=== PATIENT | female | born 1955 | race Caucasian/White ===

== ENCOUNTER → 2024-08-31 | Outpatient (CLI) | payer SELFPAY, OTHER ==
--- NOTE | 2024-08-31 13:15 | CT_ITS ---
EXAM: CT LEFT LOWER EXTREMITY WITHOUT INTRAVENOUS CONTRAST CLINICAL INDICATION: templating for left TKA. pre-op peg TECHNIQUE: Helically acquired images were obtained of the left lower extremity without intravenous contrast. 2-D reformats were performed by the technologist. CTDIvol = ( 19.10 ) mGy, DLP = ( 1221.36 ) mGycm This CT exam was performed using one or more of the following dose reduction techniques: automated exposure control, adjustment of the mA and/or kV according to patient size, and/or use of iterative reconstruction technique. COMPARISON: December 30, 2023 FINDINGS: BONES/JOINTS: Prominent plantar calcaneal enthesophyte. Moderate tricompartmental osteoarthrosis. Greater trochanteric enthesopathy. Preservation of the joint space. No acute or healing fracture or malalignment. No unusual lytic or sclerotic lesions of bone. No osteonecrosis. No other unusual lytic or sclerotic lesions of bone. SOFT TISSUES: Left inguinal hernia containing a loop of descending/sigmoid colon. This appears to be incarcerated. No definite strangulation at this time on limited assessment. No bowel obstruction on limited assessment. No soft tissue swelling or gas. No radiopaque foreign body. No soft tissue mass. CT/Extremity Lower without Contra IMPRESSION: Left inguinal hernia containing a loop of descending/sigmoid colon. This appears to be incarcerated. No definite strangulation or bowel obstruction at this time on limited assessment. Electronically Signed: Arnulfo Hay MD at 21:55 EST ,
[2024-08-31 13:27] LABS: Absolute Lymphocyte Count 1.44 X10^3/uL (0.83-4.51); Absolute Neutrophil Count 3.1 X10^3/uL (2.0-7.7); Basophil# 0.02 X10^3/uL; Basophil% 0.4 % (0-1); Eosinophil# 0.08 X10^3/uL; Eosinophils% 1.6 % (0-5); Hematocrit 42.6 % (37-47); Hemoglobin 13.4 g/dL (12.0-15.0); Lymphocyte # 1.44 X10^3/ul (0.83-4.51); Lymphocyte % 28.4 % (19-41); Mean Corp Hgb Conc 31.5 g/dL (32-36); Mean Corpuscular Hgb 28.6 pg (27.0-32.0); Mean Platelet Vol. 10.9 fl (6.2-12.0); Monocyte# 0.44 X10^3/uL; Monocyte% 8.7 % (0-10); NRBC Flagged by Analyzer 0 % (0-5); Neutrophil # 3.08 X10^3/uL (2.7-7.7); Neutrophil % 60.7 % (47-70); Platelet Count 250 K/mm3 (150-450); RBC Distribution Width CV 13.2 % (11.6-14.6); RBC Distribution Width SD 44.1 fl (35.1-43.9); Red Blood Count 4.68 M/mm3 (4.2-5.4); White Blood Count 5.1 K/mm3 (4.4-11.0)
[2024-08-31 13:40] LABS: Anion Gap 4 (5-15); BUN 8 mg/dL (7-18); BUN/Creat Ratio 9.5 RATIO (10-20); Calcium,Total 9.7 mg/dL (8.5-10.1); Chloride 104 mmol/L (98-107); Creatinine, Serum 0.85 mg/dL (0.55-1.02); EST Glomerular Filtration Rate 71 mL/min (>60); Est Glom Filt Rate - Afr Amer 86 mL/min (>60); Glucose 126 mg/dL (74-106); Potassium 3.9 mmol/L (3.5-5.1); Sodium Level 138 mmol/L (136-145)
[2024-08-31 13:50] LABS: Hemoglobin A1c 6.3 % (3.8-5.6)
== END | disposition home or self-care (01) ==
LOC: CT 13:02
PROVIDERS: PCP Family Medicine; Referring Provider Orthopaedic Surgery; Visit Provider Orthopaedic Surgery
DX: Z01.818 Encounter for other preprocedural examination (principal); M17.12 Unilateral primary osteoarthritis, left knee
CPT/HCPCS: 36415; 73700; 80048; 83036; 85025; 86850; 86900; 86901

== ENCOUNTER 2024-09-13 14:28 | Inpatient (IN) | payer SELFPAY, OTHER ==
--- NOTE | 2024-07-06 08:14 | EKG12_ITS ---
Test Reason : PREOP Blood Pressure : / mmHG Vent. Rate : 063 BPM Atrial Rate : 063 BPM P-R Int : 164 ms QRS Dur : 082 ms QT Int : 430 ms P-R-T Axes : 047 -11 045 degrees QTc Int : 440 ms Normal sinus rhythm Normal ECG Confirmed by CAROL GUILLEN, NELA ([id number]), technical editor JONATHAN CAMPBELL ([id number]) on 07/06/2024 2:10:57 PM Referred By: Mike Moore Confirmed By:NELA MEDINA MD
[2024-09-13] VITALS (15 sets, daily range): BP systolic 111–151; BP diastolic 57–75; PULSE 68–85; RESP 16–18; TEMP 36.2–36.6; O2SAT 88–100; BMI 38.2
[2024-09-13] MEDS: Scopolamine 1mg/72hr Patch 1 PATCH TD (09:18)
[2024-09-13] MEDS: Acetaminophen 500 MG Tablet 1000 MG PO ×2 (09:19→21:08)
[2024-09-13] MEDS: 0.9% Normal Saline (1000mL) 1,000 ML 15 ML IV (09:19)
[2024-09-13] MEDS: Celecoxib 200 MG Capsule 400 MG PO (09:19)
[2024-09-13] MEDS: Gabapentin 600 MG Tablet PO (09:20)
[2024-09-13] MEDS: Magnesium 1 GM over 15 mins IV (09:20)
--- NOTE | 2024-09-13 10:21 | PCM.PRE.AN2 ---
ASA Classification* ASA Classification ASA Classification: 2 Assessment & Plan Anesthesia* Anesthesia Assessment Anesthesia Assessment: Discussed sedation and/or anesthesia options, risks, benefits, and alternatives with patient/parents/legal guardian/POA. Questions invited. The patient/parents/legal guardian/POA seems to understand and agrees to proceed with anesthesia plan. Reviewed the physical assessment, medical history, allergy history and patient home medications list prior to surgery/procedure/anesthetic and documented any changes. Performed airway and anesthesia risk assessments. Anesthesia Type Anesthesia Type: MAC, Spinal and Block (Patient is consented for adductor canal block.) History Source History Obtained from:: Patient and Chart Anesthesia Focused Assessment* Temperature: 97.6 F Pulse Rate: 72 Blood Pressure: 139/75 Respiratory Rate: 16 Pulse Ox: 97 Oxygen Delivery Method: Room Air Airway Assessment Mouth opens: >3 cm Mallampati Score: II Teeth Condition: Dentures (Patient has full upper and lower dentures.) Neck Range of motion (ROM): Limited ROM (Slight decrease in extension) Focused Labs Anesthesia Preop lab: CBC WBC 5.1 K/mm3 (4.4-11.0) 08/31/24 13:05 RBC 4.68 M/mm3 (4.2-5.4) 08/31/24 13:05 Hgb 13.4 g/dL (12.0-15.0) 08/31/24 13:05 Hct 42.6 % (37-47) 08/31/24 13:05 Plt Count 250 K/mm3 (150-450) 08/31/24 13:05 CHEMISTRY Potassium 3.9 mmol/L (3.5-5.1) 08/31/24 13:05 Sodium 138 mmol/L (136-145) 08/31/24 13:05 BUN 8 mg/dL (7-18) 08/31/24 13:05 Creatinine 0.85 mg/dL (0.55-1.02) 08/31/24 13:05 Glucose 126 mg/dL (74-106) H 08/31/24 13:05 COAG Pre-Assessment Diagnosis/Proposed Procedure Planned Operative Procedure(s): LEFT KNEE TOTAL ARTHROPLASTY ROBOTIC ASSISTED Anesthesia History Anesthesia History - rf test engineer: Anesthesia History - rf test engineer Hx Hospitalization No 08/29/24 09:18 Any Problems With Anesthesia No 08/29/24 09:18 Cholinesterase deficiency No 08/29/24 09:18 You/Your Family Experience No 08/29/24 09:18 fever (hyperthermia) with Relationship Recent Exposure to Contagious No 09/13/24 08:56 Disease Does patient have nerve No 08/29/24 09:18 stimulator Patient instructed to have device shut off --Does patient have Pacemaker No 09/13/24 08:56 or ICD? When Was Last Pacemaker Check QUESTION #4 FULL TEXT: You/Your Family Experience fever (hyperthermia) with Anesthesia Last Oral Intake Last Oral intake: Last Oral Intake NPO since 07:15 09/13/24 08:56 Meds taken in AM with sips of water? Meds patient instructed to take am of surgery Any additional information?: Yes NPO since: 07:15 (Patient took her preop Ensure at 7:15 AM) PONV PONV - rf test engineer: PONV - rf test engineer Female Yes 08/29/24 09:18 HX of Motion Sickness No 08/29/24 09:18 HX of N/V After Surgery No 08/29/24 09:18 Non-Smoker Yes 08/29/24 09:18 Duration of Surgery greater Yes 08/29/24 09:18 than 60 minutes Number of Risk Factors 3 08/29/24 09:18 PONV Score Moderate Risk 08/29/24 09:18 Height & Weight Height & Weight: Anesthesia: Height & Weight Height 5 ft 2 in 09/13/24 08:56 Weight: 95 kg 09/13/24 08:56 Body Mass Index (BMI) 38.2 09/13/24 08:56 Respiratory Assessment Respiratory Assessment - rf test engineer: Respiratory Tract Infection Hx - rf test engineer Hx Respiratory Tract Infection No 08/29/24 09:18 STOP Sleep Apnea STOP Sleep Apnea - rf test engineer: STOP Sleep Apnea - rf test engineer Hx Hypertension No 08/29/24 09:18 Hx Sleep Apnea No 08/29/24 09:18 CPAP BIPAP Do you snore loudly (louder No 08/29/24 09:18 than talking or can be heard Do you often feel tired/ No 08/29/24 09:18 fatigued/ sleepy during daytime? Has anyone observed you stop No 08/29/24 09:18 breathing during sleep? STOP Results Negative 08/29/24 09:18 QUESTION #5 FULL TEXT : Do you snore loudly (louder than talking or can be heard through closed doors)? 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 Specify any problems Hx of Preganancy in last 3 No 08/29/24 09:18 Months Nurse Filling Out Transfusion VCHRISTIN 08/29/24 09:18 & Questions: Date: 08/29/24 08/29/24 09:18 Time: 09:18 08/29/24 09:18 Patient unable to answer at this time (ie. confused, unrespo /Reproduction History /Reproductive History - rf test engineer: /Reproductive Hx- rf test engineer Hx Now No 08/29/24 09:18 Gestational Age (in weeks): EDC: Hx Hx Para Hx Section SAB No 08/29/24 09:18 Active Medications Active Medications: Current Medications Generic Name Dose Route Start Last Admin Trade Name Freq PRN Reason Stop Dose Admin Acetaminophen 1,000 mg 09/13/24 10:45 09/13/24 09:19 Acetaminophen 500 Mg Tablet PO 09/13/24 10:46 1,000 mg X1 ONE Administration Celecoxib 400 mg 09/13/24 10:45 09/13/24 09:19 Celecoxib 200 Mg Capsule PO 09/13/24 10:46 400 mg X1 ONE Administration Dexamethasone Sodium Phosphate 10 mg 09/13/24 10:45 Dexamethasone 10 Mg/Ml Vial IV 09/13/24 10:46 X1 ONE Gabapentin 600 mg 09/13/24 10:45 09/13/24 09:20 Gabapentin 600 Mg Tablet PO 09/13/24 10:46 600 mg X1 ONE Administration Tranexamic Acid 1,000 mg/ 110 mls @ 660 mls/hr 09/13/24 10:45 Sodium Chloride IV 09/13/24 10:54 X1 ONE Tranexamic Acid 1,000 mg/ 110 mls @ 660 mls/hr 09/13/24 10:45 Sodium Chloride IV 09/13/24 10:54 X1 ONE Lactated Ringer's 1,000 mls @ 125 mls/hr 09/13/24 10:45 IV 09/13/24 18:44 .Q8H GIANA Magnesium Sulfate 1 gm/ 102 mls @ 408 mls/hr 09/13/24 10:45 09/13/24 09:20 Dextrose IV 09/13/24 10:59 408 mls/hr X1 ONE Administration Cefazolin Sodium 2 gm/ N/A 20 mls @ 400 mls/hr 09/13/24 10:45 IV 09/13/24 10:47 PREOP ONE Sodium Chloride 1,000 mls @ 15 mls/hr 09/13/24 08:40 09/13/24 09:19 IV 09/18/24 21:59 15 mls/hr .Q48H GIANA Administration Protocol Insulin Human Lispro 1 - 6 unit 09/13/24 10:45 Insulin Lispro 100 Unit/Ml Insuln.Pen SC 09/13/24 18:00 Q4H PRN PRN BG>/= 180, SEE PROTOCOL Protocol Scopolamine HBr 1 patch 09/13/24 10:45 09/13/24 09:18 Scopolamine 1mg/72hr Patch TD 09/13/24 10:46 1 patch X1 ONE Administration Sodium Chloride 5 - 15 ml 09/13/24 10:45 0.9% Nacl Peripheral Flush Adult/Peds IV UD PRN SALINE FLUSH PFSH Medical History Wears glasses Anxiety Wears dentures Post-menopausal Diabetes History of steroid therapy Incontinence of urine Arthritis DVT (deep venous thrombosis) Back pain Non-smoker History of pain when walking Home Medications ?Medication ?Instructions ?Recorded ?Last Taken ?Type BOWEL TONER 2 cap PO BID 07/04/24 Unknown History FULFURFLUME 2 cap PO BID 07/04/24 Unknown History MEXI VISION 2 cap PO BID 07/04/24 Unknown History MOBILITY JOINT SUPPORT 2 cap PO BID 07/04/24 Unknown History fish, borage, flaxseed oils-omega 2 cap PO BID 07/04/24 Unknown History 3,6,9 comb no.1 1,200 mg capsule ([place] 3-6-9) ibuprofen 600 mg tablet (IBU) 600 mg PO Q8H PRN pain 07/04/24 Unknown History Allergy/AdvReac Type Severity Reaction Status Date / Time Penicillins (PCN) Allergy Intermediate Swelling Verified 09/13/24 08:55 Family History Mother Heart disease Surgical History Hx of breast biopsy Hx of bladder repair surgery Hx laparoscopic cholecystectomy H/O total knee replacement Social History household members: spouse Smoking Status: Never smoker alcohol intake: never Review of Systems (Anesthesia) ROS Narrative System reviewed and no additional complaints, except as documented.
--- NOTE | 2024-09-13 10:45 | KNEE_PTH ---
PATIENT: JODI MUNOZ LOC: MS3 U#:[id number] AGE/SX: 69/F [place] [facility] [place]: Dr. Mike Moore DO : 1955 BED: 1 DIS: 09/14/2024 SPEC #: [id number] RECD: 09/15/24 07:34 STATUS: KURTIS REJennifer #: [id number] FEMI: 09/13/24 10:[address]: Mike Moore DEPT: SURGICAL PATHOLOGY RECD BY: Cammie Márquez ENTERED: 09/15/24 07:34 SP TYPE: TOTAL KNEE OTHR DR: MD Dr. Josefa Deleon MD Tissues: Knee, NOS Procedures: Decalcification bone/plaque Surgery Specimen Level IV HEADER OPERATION: Left total knee replacement robotic arm assist PRE-OP DIAGNOSIS: Chronic pain of left knee TISSUE SUBMITTED: Bone and soft tissue left knee MICROSCOPIC DIAGNOSIS Bone and soft tissue, left knee, total knee replacement/resection: Pieces of bone with degenerative osteoarthritic changes. FABY: 09/21/2024 MICROSCOPIC DESCRIPTION Slides are reviewed. GROSS DESCRIPTION Received is one container designated bone and soft tissue left knee. The specimen consists of multiple fragments of lawson-yellow bone measuring in aggregate 9.0 x 9.0 x 2.5 cm. No soft tissue is identified. A number of bony fragments contain articular surfaces consistent with tibial plateau and femoral condyle and displaying prominent osteophyte formation, eburnation and bone erosion. Window Shade Ring Sewer sections are submitted in two cassettes after decalcification. 09/15/2024 TC:5 CPT: 04993, 83318
--- NOTE | 2024-09-13 11:54 | PCM.HP.BLA ---
History and Physical Date of Admission: 09/13/24 [facility] [address] [place] [address] OFFICE VISIT Date of Service: 08/31/24 MR#: [id number] Acct: [id number] Name: JODI MUNOZ Rep #: [id number] : 1955 Provider: Dr. Mike Moore DO Age/Sex: 69/F Location: [facility] [place] Status: Signed Intake Vital Signs 07/22/2410:22 08/31/2410:27 Height 5 ft 2 in 5 ft 2 in Weight: 226 lb 4 oz 209 lb 4 oz BMI 41.3 38.2 Intake Visit Reasons: left knee Chief Complaint: left knee Allergies Penicillins (PCN) Allergy (Intermediate, Verified 08/29/24 09:14) Swelling Medications ?Medication ?Instructions ?Recorded ?Confirmed ?Type BOWEL TONER 2 cap PO BID 07/04/24 08/31/24 History FULFURFLUME 2 cap PO BID 07/04/24 08/31/24 History MEXI VISION 2 cap PO BID 07/04/24 08/31/24 History MOBILITY JOINT SUPPORT 2 cap PO BID 07/04/24 08/31/24 History fish, borage, flaxseed oils-omega 2 cap PO BID 07/04/24 08/31/24 History 3,6,9 comb no.1 1,200 mg capsule ([place] 3-6-9) ibuprofen 600 mg tablet (IBU) 600 mg PO Q8H PRN pain 07/04/24 08/31/24 History Have you fallen in the past year?: No PFSH Medical History Wears glasses Anxiety Wears dentures Post-menopausal Diabetes History of steroid therapy Incontinence of urine Arthritis DVT (deep venous thrombosis) Back pain Non-smoker History of pain when walking Surgical History Hx of breast biopsy Hx of bladder repair surgery Hx laparoscopic cholecystectomy H/O total knee replacement Family History Mother Heart disease Social History household members: spouse Smoking Status: Never smoker alcohol intake: never HPI left knee Details: This documentation accurately reflects the service provided and the decisions made by me, Dr. Mike Moore, DO 08/31/24 0801. Part of today?s visit was documented by Peggy KRAFT, acting as scribe. JODI MUNOZ is a 69 year old F here today for left knee Iovera treatment. Ortho Exam General General: Yes no acute distress Neurologic: Yes alert and Yes oriented x3 Psychologic: Yes reasonable and appropriate Left Knee Skin/Wound: No swelling Knee ROM: Yes ROM-Extension -20 to 0 and No ROM-Flexion 0-140 (110) Examination: Yes med jt line tenderness, No Lat jt line tenderness and No TTP Pes Anserine Stability: NML: Anterior Drawer, NML: Posterior Drawer, NML: Valgus 30 (3mm medial gapping) and NML: Varus 30 (2mm lateral gapping) Patella Grind: Yes Head: Normocephalic Atraumatic Chest: symmetrical rise, non-labored breathing, no audible wheeze Abdomen: no guarding, non-rigid Office Procedures Iovera Procedure Details:: Preoperative diagnosis :chronic knee pain Postoperative diagnosis: Same Procedure: Cryotherapy with Iovera device to anterior femoral cutaneous nerve and 2 branches of the infrapatellar saphenous nerve. Three nerves in total. Description of procedure: Patient was brought back to the procedure room the operative extremity was identified by both patient and physician. Entire extremity was cleaned with alcohol. The superior inferior and medial lateral borders of the patella were marked followed by the center of the patella. We then measured 12 cm proximal to this and with the knee in flexion marked the medial and lateral edges of the patella continuing proximally to give us our proximal treatment line.This was our treatment line for the anterior femoral cutaneous nerve. A second treatment line was made 5 cm medial to the inferior pole of the patella and 5 cm distally. The treatment lines were then prepped with Betadine and 1 last time with alcohol. Lidocaine 1% with epi was injected subcutaneously along the treatment lines. Using the Iovera device on the marked treatment lines device was activated allowing it to freeze and defrost with 1 minute cycles. Once all 3 nerve branches were treated across the 2 treatment lines patient was cleaned and a light dressing with 4 x 4 and Damion wrap was applied. Patient tolerated the procedure without complication. Supplemental Info 12/30/2023 x-ray left knee: Advanced medial compartment narrowing and arthrosis on AP view better on notch view milder degree of arthrosis in the remainder compartments Coding Level of Care Code Attention Physical Chemist Diagnoses Chronic pain of left knee M25.562; G89.29 Assessment and Plan Assessment and Plan (1) Chronic pain of left knee: Status: Chronic Orders: Orders Iovera Today M17.12 - Unilateral primary osteoarthritis, left knee Plan Iovera procedure performed today left knee Clinical Quality Measures Falls Risk Screening/Assistive Devices Have you fallen in the past year?: No 08/31/24 1216 <Electronically signed by Mike Moore DO> Date Mike Moore DO Cosigner Signature: Date (if applicable) CC: ~ I have examined the patient and the H&P has been reviewed. There are no clinical changes since date of exam.
[2024-09-13] MEDS: Cefazolin 2 GM in Syringe IV ×2 (12:01→17:29)
[2024-09-13] MEDS: dexAMETHasone 10 MG/ML Vial IV (12:10)
[2024-09-13] MEDS: TXA 1000mg in NS100 100ml (IVPB at Incision) 660 MG IV (12:10)
[2024-09-13] MEDS: TXA 1000mg in NS100 100ml (IVPB at Closure) 660 MG IV (12:44)
[2024-09-13] MEDS: Bupivacaine 0.5% PF 10 ML VIAL (13:36)
[2024-09-13] MEDS: dexAMETHasone 4 MG/ML Vial (13:37)
[2024-09-13] MEDS: Epinephrine (1 mg/ml) 1 MG/ML VIAL (13:37)
[2024-09-13] MEDS: 0.9% Normal Saline (Pres. free 10 ML Vial (13:38)
--- NOTE | 2024-09-13 14:22 | PCM.POST.ANE ---
Anesthesia: Postop Eval I Current Vital Signs Temperature: 97.2 F Pulse Rate: 80 Blood Pressure: 122/65 Respiratory Rate: 18 Pulse Ox: 100 Oxygen Delivery Method: Nasal Cannula Oxygen Flow Rate (L/min): 4 Assessment Airway patent: Yes Spontaneous unlabored respirations: Yes Mental status: Awake nausea: No Vomiting: No Anesthesia Complication: No Fluid Hydration Crystalloid volume administer (ml): 1,900 Total IV fluid infused: 1,900 Progress Note Anesthesia document: Postop Eval 1 completed: Yes
--- NOTE | 2024-09-13 14:30 | OP.PCM_ITS ---
Operative Report (Standard) Operative Information Date of Procedure: 09/13/24 Pre-Operative Diagnosis: Left knee DJD Post-Operative Diagnosis: Same Surgery/Procedure Performed: Left total knee arthroplasty voltage regulator assembler: Yes Billet Grinder: Desiree Pradhan Tasks completed by social worker assistant: Opening & closing Additional paralegal assistant?: No Type of Anesthesia: Spinal RN Documented Start/Stop Times: Operation Date: 09/13/24 10:45 Case Time Into Pre-Op 09/13/24 08:35 Out of Pre-Op 09/13/24 12:00 Anesthesia Start 09/13/24 12:01 Into Room 09/13/24 12:01 Procedure Start 09/13/24 12:30 Procedure End 09/13/24 14:09 Anesthesia End 09/13/24 14:17 Out of Room 09/13/24 14:17 Into Recovery 09/13/24 14:20 Procedure Start Time: 12:30 Procedure Stop Time: 14:09 Select all DRAINS/GRAFTS/IMPLANTS that apply: Prosthetic device Prosthetic device details: Alexi triathlon Estimated Blood Loss: 100 Specimen collected: Yes Description of specimen(s) removed: Bone Description of surgery: Preoperative diagnosis: Left knee DJD Postoperative diagnosis: Same Procedure: Left total knee arthroplasty CT guided Robotic Assisted Implant: [place] triathlon press fit, femoral component size1, tibial baseplate size 2, asymmetric patella size 29, polyethylene X3 size 9 CS Anesthesia: Spinal with adductor canal block Tourniquet time: 12 minutes at 300 mmHg Complications: None Condition: Stable to PACU Estimated blood loss: 100 cc Analyst Oswaldo Barger. My physician paralegal assistant was a vital part of this case. He was important in appropriate retraction during the case, and protection of soft tissues during procedure. His intimate knowledge of the case and my steps aided in safe and expedient completion of the procedure as well as appropriate position of the extremity during the case. He was also vital in assisting with closure under my direct supervision. Indication for procedure: This is a 69-year-old female with long standing d egenerative joint disease of the knee who has failed conservative treatment and wished to proceed with elective total knee arthroplasty. Risk benefits and alternatives were reviewed including; risk of bleeding, infection, nerve artery and tissue damage, continued pain, postoperative stiffness, venous thromboembolism, need for postoperative rehabilitation, mechanical feel to the knee, and expected postoperative course. The pre- operative CT and templating was performed with component sizing. Procedure: The patient was met in the preoperative holding area. The operative extremity was identified by both patient and physician and was marked. Patient was met by anesthesia. An adductor canal block was placed by anesthesia postoperatively the patient was brought back to the operating room on a wheeled cart and transferred to the operating table in the supine position. Anesthesia was started. A well-padded tourniquet was placed on the operative extremity. The patient was prepped and draped in the usual sterile fashion. A timeout was called to ensure the proper patient procedure and extremity were being contemplated. An esmarch was used to exsanguinate the extremity. The tourniq uet was inflated. A 10 blade scalpel was used to make a midline incision down through the skin and subcutaneous tissue. Skin retractors placed. Bovie and Aquamantis were used to perform meticulous hemostasis. full-thickness flaps were elevated medial and lateral along the joint capsule. A deep blade scalpel was used to perform a medial parapatellar arthrotomy. The knee was brought to full extension. A bovie was used to release the soft tissues off the most proximal aspect of the medial tibial plateau, a three-quarter inch curved osteotome was also used in this process. The infrapatellar fat pad was excised. The suprapatellar fat pad was excised partially anteriorolateraly and portion the anterioromedial pad was elevated from the femur. At this point our intra- articular femoral array was placed at a 45 degree angle proximal and posterior to the medial epicondyle. femoral checkpoint was placed at this time. Our tibial array was placed partially intra incisional 1 stab incision was made for the inferior pin with a 15 blade scaple, and pins were placed and attached to the tibial array , tibial checkpoint was placed in the proximal tibial metaphysis. Tourniquet was let down. At this point registration napoles were taken throughout the knee . Once the knee was registered we then tensioned the medial and lateral ligaments in extension and 90 degrees of flexion. We then used these numbers to adjust our components within parameters to balance the knee in both flexion and extension once this was done on our monitor we then proceeded with using the robotic arm to make our tibial plateau cut, anterior and posterior chamfer and distal femur cuts. we removed the cut fragments with the use of a bovie and [place], we did use a lamina clinical transformation specialist to insure we visualized and removed all posterior osteophytes and at this time also used the Aquamantis on the posterior joint capsule. we then trialed and achieved the desired plan with a well-balanced knee. we used the green probe to irma the corresponding tibial rotation based on our CT template. Lug holes were drilled in the femur the tibia preparation was completed with the appropriate sized base plate pinned based on previous rotation irma. An appropriate sized fin punch was used on the tibia and 4 corner drill was used for the press fit component and the patella was prepared by first using a caliper to ensure sufficient bone stock and a patellar reamer to remove the desired amount of bone. lug holes drilled for an asymmetric poly. We then brought the knee through range of motion with excellent patellar tracking. We thoroughly irrigated the knee. Trial components were removed a posterior capsular injection was preformed with our standard cocktail. In addition the aqua Mantis was also used to aid in hemostasis. Betadine rinse was allowed to sit and washed out completely. Components were press-fit into place. Aricept rinse was then used followed by several more liters of irrigation after it was allowed to sit. The joint capsule was closed with #1 Ethibond [id number] in the upper part of the arthrotomy and #1 Vicryl in the lower part of the arthrotomy. , Followed by 2-0 Vicryl in the subcutaneous tissues with dionicio in the skin. Arrays and checkpoints were removed prior to closure all counts were correct stab incisions were closed with a staple standard dressing in the form of Mepilex AG for the main incision and a small Mepilex over the pin holes. Thigh-high ARMINDA hose applied over top of dressing. Patient tolerated the procedure well and was directed to PACU in stable condition . There were no intraoperative complications. Surgical Findings: Degenerative joint disease Complications Complications: No
--- NOTE | 2024-09-13 14:34 | RAD_ITS ---
INDICATION: post op -- AP and Lateral xray of operative knee in PACU EXAMINATION/TECHNIQUE: X-RAY - LEFT XR Knee 1 or 2 Views 2 VIEWS COMPARISON: Prior study dated: 12/30/2023 FINDINGS: SOFT TISSUES: Soft tissue swelling. Skin dionicio anteriorly. BONES/JOINTS: Status post total knee arthroplasty. Unremarkable alignment. In the suprapatellar joint space consistent with recent surgery. No sclerotic or destructive changes observed. RAD/Knee 1 or 2 Views IMPRESSION: Status post total knee arthroplasty. Electronically Signed: Addi Marrero MD at 15:37 EST ,
[2024-09-13] MEDS: 0.9% Normal Saline (1000mL) 1,000 ML 125 ML IV ×2 (14:36→23:10)
--- NOTE | 2024-09-13 15:33 | POSTOPAN2_ITS ---
Anesthesia Postop Eval I Sum Postop Eval Completion status Anesthesia document: Postop Eval 1 completed: Yes Anesthesia Postop Eval I Summary Anesthesia Postop Eval I Summary: Anesthesia Postop Eval I: Assessment Summary Airway patent Yes 09/13/24 14:23 METAL BONDING PRESS OPERATOR.[email or web address] Spontaneous unlabored Yes 09/13/24 14:23 METAL BONDING PRESS OPERATOR.HBARR respirations Mental status Awake 09/13/24 14:23 METAL BONDING PRESS OPERATOR.HBARR nausea No 09/13/24 14:23 METAL BONDING PRESS OPERATOR.HBARR Vomiting No 09/13/24 14:23 METAL BONDING PRESS OPERATOR.HBARR Anesthesia Postop Eval I: Fluid Summary Crystalloid volume administer 1,900 09/13/24 14:23 METAL BONDING PRESS OPERATOR.HBARR (ml) Colloids volume administered ( ml) Blood Product volume administered (ml) Total IV fluid infused 1,900 09/13/24 14:23 METAL BONDING PRESS OPERATOR.HBARR Anesthesia Postop Eval I: Summary Notes Anesthesia Complication No 09/13/24 14:23 METAL BONDING PRESS OPERATOR.HBARR Anesthesia Complication Comment: Post-operative progress note Anesthesia: Postop Eval II Evaluation Mental status: Awake Pain Level: 0 nausea: No Vomiting: No
--- NOTE | 2024-09-13 15:33 | PCM.POSTANE2 ---
Anesthesia Postop Eval I Sum Postop Eval Completion status Anesthesia document: Postop Eval 1 completed: Yes Anesthesia Postop Eval I Summary Anesthesia Postop Eval I Summary: Anesthesia Postop Eval I: Assessment Summary Airway patent Yes 09/13/24 14:23 COAT [email or web address] Spontaneous unlabored Yes 09/13/24 14:23 COAT JOINER.[email or web address] respirations Mental status Awake 09/13/24 14:23 COAT JOINER.HBARR nausea No 09/13/24 14:23 COAT JOINER.HBARR Vomiting No 09/13/24 14:23 COAT JOINER.[email or web address] Anesthesia Postop Eval I: Fluid Summary Crystalloid volume administer 1,900 09/13/24 14:23 COAT [email or web address] (ml) Colloids volume administered ( ml) Blood Product volume administered (ml) Total IV fluid infused 1,900 09/13/24 14:23 COAT JOINER.HBARR Anesthesia Postop Eval I: Summary Notes Anesthesia Complication No 09/13/24 14:23 COAT JOINER.HBARR Anesthesia Complication Comment: Post-operative progress note Anesthesia: Postop Eval II Evaluation Mental status: Awake Pain Level: 0 nausea: No Vomiting: No
[2024-09-13] MEDS: oxyCODONE 5 MG Tablet PO ×2 (17:28→21:28)
[2024-09-13] MEDS: Senna/Docusate Sodium 1 Tablet 2 TABLET PO (21:08)
[2024-09-14] MEDS: oxyCODONE 5 MG Tablet PO ×3 (01:41→12:30)
[2024-09-14] MEDS: Cefazolin 2 GM in Syringe IV ×2 (01:42→08:41)
[2024-09-14 03:44] VITALS: BP 118/67; PULSE 64; RESP 16; TEMP 36.6; O2SAT 97
[2024-09-14] MEDS: Acetaminophen 500 MG Tablet 1000 MG PO ×2 (05:13→14:20)
[2024-09-14 05:55] LABS: Hematocrit 35.2 % (37-47); Hemoglobin 11.1 g/dL (12.0-15.0); Mean Corp Hgb Conc 31.5 g/dL (32-36); Mean Corpuscular Hgb 28.9 pg (27.0-32.0); Mean Corpuscular Volume 91.7 fL (81-99); Mean Platelet Vol. 10.6 fl (6.2-12.0); Platelet Count 199 K/mm3 (150-450); RBC Distribution Width CV 13.1 % (11.6-14.6); RBC Distribution Width SD 43.6 fl (35.1-43.9); Red Blood Count 3.84 M/mm3 (4.2-5.4); White Blood Count 12.5 K/mm3 (4.4-11.0)
[2024-09-14 06:24] LABS: Anion Gap 3 (5-15); BUN 7 mg/dL (7-18); BUN/Creat Ratio 12.1 RATIO (10-20); Calcium,Total 8.7 mg/dL (8.5-10.1); Chloride 109 mmol/L (98-107); Creatinine, Serum 0.58 mg/dL (0.55-1.02); EST Glomerular Filtration Rate 110 mL/min (>60); Est Glom Filt Rate - Afr Amer 133 mL/min (>60); Estimated Creatinine Clearance 71.31 ml/min; Glucose 160 mg/dL (74-106); Potassium 4.4 mmol/L (3.5-5.1); Sodium Level 138 mmol/L (136-145)
[2024-09-14 07:35] VITALS: O2SAT 97
[2024-09-14] MEDS: Ketorolac 30 MG/ML Syringe IV (08:15)
[2024-09-14 08:27] VITALS: BP 140/76; PULSE 65; RESP 17; TEMP 36.6; O2SAT 98
[2024-09-14] MEDS: Senna/Docusate Sodium 1 Tablet 2 TABLET PO (08:36)
[2024-09-14] MEDS: APIXABAN 2.5 MG TABLET (WCH) PO (08:37)
--- NOTE | 2024-09-14 11:44 | PCM.PN.ORT ---
Subjective Subjective Seen and examined. Pain controlled now was having pain this morning but was given medication is doing much better. Has not yet been seen by physical therapy but has been up to the bathroom. Denies nausea vomiting shortness of breath or chest pain. Objective Data Objective Data Vital Signs: Vital Signs Temp Pulse Resp BP Pulse Ox O2 Del Method O2 Flow Rate 97.9 F 65 17 140/76 H 98 Nasal Cannula 2 09/14/24 08:27 09/14/24 08:27 09/14/24 08:27 09/14/24 08:27 09/14/24 08:27 09/14/24 08:27 09/14/24 08:27 Oxygen Flow Rate (L/min) 2 Oxygen Delivery Method Nasal Cannula Weight: 209 lb 7.026 oz Body Mass Index (BMI) 38.2 Intake & Output: Intake and Output for Last 24 Hours 09/12/24 09/13/24 09/14/24 23:59 23:59 23:59 Intake Total 2428.67 / 2428.67 1190 / 1190 Balance 2428.67 / 2428.67 1190 / 1190 Lab / Micro Data 09/14/24 05:15 09/14/24 05:15 Labs: Laboratory Results - last 24 hr 09/14/24 05:15: WBC 12.5 H, RBC 3.84 L, Hgb 11.1 L, Hct 35.2 L, MCV 91.7, MCH 28.9, MCHC 31.5 L, RDW Std Deviation 43.6, RDW Coeff of Eladio 13.1, Plt Count 199, MPV 10.6, Sodium 138, Potassium 4.4, Chloride 109 H, Carbon Dioxide 27.0, Anion Gap 3 L, BUN 7, Creatinine 0.58, Estim Creat Clear Calc 71.31, Est GFR (MDRD) Af Amer 133, Est GFR (MDRD) Non-Af 110, BUN/Creatinine Ratio 12.1, Glucose 160 H, Calcium 8.7 Radiography Diagnostic Testing: Radiology Impression Knee X-Ray 09/13/24 14:34 IMPRESSION: Status post total knee arthroplasty. Electronically Signed: Addi Marrero MD at 15:37 EST , Physical Exam Const alert, oriented x3 and no apparent distress General Appearance: cooperative Extremity Extremity Narrative: Left lower extremity dressing clean dry intact compartments soft neurovascular intact Assessment & Plan Assessment/Plan (1) S/P total knee arthroplasty: QUALIFIERS: Laterality: left Qualified Code(s): Z96.652 - Presence of left artificial knee joint PLAN: Plan Postop day #1 left total knee arthroplasty PT OT weightbearing as tolerated DVT prophylaxis SCDs ARMINDA easley Eliquis 2.5 mg twice daily Will change thigh-high's to knee-high's as they are rolling. DC home today after physical therapy.
--- NOTE | 2024-09-14 11:48 | PCM.DC ---
Discharge Instructions Diet Discharge Diet: No restrictions (Minimize sweets and carbohydrates as a high sugar diet postoperatively can increase risk of infection. Encourage protein rich foods. ) DC O2, CPAP, BIPAP needs Home O2 Discharge instructions: No Dressing / Incision Weight Bearing Status: Weight bearing as tolerated Dressing / Incision Call your doctor if you observe: Shortness of breath and Chest pain Additional Dressing/Incision Instructions:: Ice and elevate lower extremities 2 weeks while not ambulating. Ambulation is encouraged. Weight bearing as tolerated. Use assistive devise for stability. Encourage FULL knee extension and flexion 1 time EVERY time you get up and down and MULTIPLE times per day. No showering until 72 hours after surgery. May begin showering postop day #3. Remove the dressing prior to shower and gently wash with warm water and antibacterial soap then pat dry and place abdominal pad (or plain gauze) and ARMINDA hose over top. This is to be done daily. Do not submerge for 3 weeks. If not showering daily after the initial 72 hours then you must clean incision and change dressing daily after the dressing comes off, must come off by 7 days postop. Do not allow animals near the incision area. Keep clean. Follow anti-coagulation recommendations as prescribed. Do not take any NSAIDs while on blood thinner. Do not take any additional narcotic pain medication other than what was prescribed on your surgery day without discussing with physician. Narcotic medication can be addictive. Do not drink alcohol while taking narcotics. Supplement narcotic prescription with acetaminophen 1000 mg 4 times a day. Start physical therapy. If you are not currently scheduled for physical therapy or you are unsure of appointment time please call office [facility] to arrange. Call Dr. Moore with any concerns. Follow Up Care Please Follow Up With: Mike Moore DO When: 2 weeks Test Results: Test results from this visit will be discussed in further detail at your follow-up appointment, if applicable. Discharge Plan Admission Admit Date/Time: 09/13/24 14:28 Primary Reason for Your Visit: Left total knee arthroplasty Attending Provider: Mike Moore Primary Care Provider: Josefa Gagnon Consulting Providers: Corey Levin Discharge Orders/Prescriptions Prescriptions: New acetaminophen 500 mg tablet 1,000 mg PO Q6H Qty: 100 2RF Eliquis 2.5 mg tablet 2.5 mg PO BID Qty: 30 0RF oxycodone 5 mg tablet 5 - 10 mg PO Q4H PRN (Reason: pain) 7 Days Qty: 60 0RF docusate sodium [Colace] 100 mg capsule 100 mg PO BID PRN (Reason: constipation) Qty: 60 2RF Rx Instructions: Use while taking narcotic to prevent constipation if needed. Held ibuprofen [IBU] 600 mg tablet 600 mg PO Q8H PRN (Reason: pain) Hold Instructions: May resume after completion of blood thinner if needed No Action BOWEL TONER 2 cap PO BID FULFURFLUME 2 cap PO BID MOBILITY JOINT SUPPORT 2 cap PO BID MEXI VISION 2 cap PO BID [place] 3-6-9 1,200 mg capsule 2 cap PO BID Other Ambulatory Orders: Partial Thromboplast Time (Routine) Timeframe: [id number] Facility: [facility] - Location: Laboratory Ordered By: Dr. Mike Moore Fructosamine (Routine) Timeframe: [id number] Facility: [facility] - Location: Laboratory Ordered By: Dr. Mike Moore Magnesium (Routine) Timeframe: [id number] Facility: [facility] - Location: Laboratory Ordered By: Dr. Corey Levin MRSA/SAID SCREEN (PRE SURG) (Routine) Timeframe: [id number] Facility: [facility] - Location: Laboratory Ordered By: Dr. Mike Moore Prothrombin Time w/INR (Routine) Timeframe: [id number] Facility: [facility] - Location: Laboratory Ordered By: Dr. Mike Moore
--- NOTE | 2024-09-14 11:52 | PCM.DC.SUM ---
Providers Date of Admission: 09/13/24 Primary Care Physician: Dr. Josefa Gagnon MD Reason For Visit: ERAS Left Total Knee Replacement Ro Diagnosis Discharge Diagnosis (1) S/P total knee arthroplasty: Status: Acute Code(s): Z96.659 - Presence of unspecified artificial knee joint Qualifiers: Laterality: left Qualified Code(s): Z96.652 - Presence of left artificial knee joint Plan Postop day #1 left total knee arthroplasty PT OT weightbearing as tolerated DVT prophylaxis SCDs ARMINDA hose Eliquis 2.5 mg twice daily Will change thigh-high's to knee-high's as they are rolling. DC home today after physical therapy. Medications at Discharge Home Medications BOWEL TONER 2 cap PO BID 07/04/24 FULFURFLUME 2 cap PO BID 07/04/24 MEXI VISION 2 cap PO BID 07/04/24 MOBILITY JOINT SUPPORT 2 cap PO BID 07/04/24 fish, borage, flaxseed oils-omega 3,6,9 comb no.1 1,200 mg capsule ([place] 3-6-9) 2 cap PO BID 07/04/24 ibuprofen 600 mg tablet (IBU) 600 mg PO Q8H PRN pain 07/04/24 acetaminophen 500 mg tablet 1,000 mg (2 x 500 mg) PO Q6H #100 tabs 09/14/24 apixaban 2.5 mg tablet (Eliquis) 2.5 mg PO BID #30 tabs 09/14/24 docusate sodium 100 mg capsule (Colace) 100 mg PO BID PRN constipation #60 caps 09/14/24 oxycodone 5 mg tablet 5 - 10 mg (1 - 2 x 5 mg) PO Q4H PRN pain 7 days #60 tabs 09/14/24 Hospital Course Operations total knee replacement Summary of Care Provided Hospital Course: Who has long history of degenerative joint disease to the knee who has failed conservative treatment and wished to undergo elective total knee arthroplasty. Patient underwent the aformentioned procedure on the admission date without any intraoperative complications. Patient did receive pre-and postoperative antibiotics which were discontinued within 23 hours postoperatively. Patient did receive an adductor canal block postoperatively. pain was controlled with IV and transition to p.o. pain medication Patient will be discharged home with oxycodone and will continue Tylenol as well. Patient had minimal intraoperative blood loss and 2gm tranexamic acid was administered there was no need for postoperative blood transfusion Patients vital signs remained stable. Patient was started on both mechanical and chemical DVT per prophylaxis postoperatively in the form of SCDs ARMINDA hose and Eliquis 2.5 mg twice daily for which she will continue for 2 additional weeks post hospital discharge. thigh high arminda hose placed over top of the meplix silver dressing. This should be removed 72 hrs post operatively and showering begun daily at that time with warm water and antibacterial soap. not to submerge for 3 weeks. To change dressing daily after first dressing change. Patient will follow-up in the office in 2 weeks. No intrahospital complications. She will be seen by physical therapy prior to discharge. Weight / BMI Weight Weight: 209 lb 7.026 oz Body Mass Index (BMI) 38.2 ABG / Lab / Microbiology Data 09/14/24 05:15 09/14/24 05:15 Laboratory: Laboratory Results - last 24 hr 09/14/24 05:15: WBC 12.5 H, RBC 3.84 L, Hgb 11.1 L, Hct 35.2 L, MCV 91.7, MCH 28.9, MCHC 31.5 L, RDW Std Deviation 43.6, RDW Coeff of Eladio 13.1, Plt Count 199, MPV 10.6, Sodium 138, Potassium 4.4, Chloride 109 H, Carbon Dioxide 27.0, Anion Gap 3 L, BUN 7, Creatinine 0.58, Estim Creat Clear Calc 71.31, Est GFR (MDRD) Af Amer 133, Est GFR (MDRD) Non-Af 110, BUN/Creatinine Ratio 12.1, Glucose 160 H, Calcium 8.7 Radiography Diagnostic Testing: Radiology Impression Knee X-Ray 09/13/24 14:34 IMPRESSION: Status post total knee arthroplasty. Electronically Signed: Addi Marrero MD at 15:37 EST , D/C Instructions Discharge Diet: No restrictions (Minimize sweets and carbohydrates as a high sugar diet postoperatively can increase risk of infection. Encourage protein rich foods. ) Weight Bearing Status: Weight bearing as tolerated Call your doctor if you observe: Shortness of breath and Chest pain Additional Dressing/Incision Instructions: Ice and elevate lower extremities 2 weeks while not ambulating. Ambulation is encouraged. Weight bearing as tolerated. Use assistive devise for stability. Encourage FULL knee extension and flexion 1 time EVERY time you get up and down and MULTIPLE times per day. No showering until 72 hours after surgery. May begin showering postop day #3. Remove the dressing prior to shower and gently wash with warm water and antibacterial soap then pat dry and place abdominal pad (or plain gauze) and ARMINDA hose over top. This is to be done daily. Do not submerge for 3 weeks. If not showering daily after the initial 72 hours then you must clean incision and change dressing daily after the dressing comes off, must come off by 7 days postop. Do not allow animals near the incision area. Keep clean. Follow anti-coagulation recommendations as prescribed. Do not take any NSAIDs while on blood thinner. Do not take any additional narcotic pain medication other than what was prescribed on your surgery day without discussing with physician. Narcotic medication can be addictive. Do not drink alcohol while taking narcotics. Supplement narcotic prescription with acetaminophen 1000 mg 4 times a day. Start physical therapy. If you are not currently scheduled for physical therapy or you are unsure of appointment time please call office [facility] to arrange. Call Dr. Moore with any concerns. DC O2, CPAP, BIPAP Needs Home O2 Discharge instructions: No Please Follow Up With: Mike Moore DO When: 2 weeks Meaningful Use Info Meaningful Use Meaningful Use Diagnoses (Choose all that apply): None applicable Ischemic Stroke Statin Dosing Therapy Reference: STATIN DOSE THERAPY REFERENCE: * Patients > 75 years receive moderate or high dose statin therapy. * Patients 75 years or YOUNGER should receive HIGH intensity statin dose unless contraindicated. You will be required to document reason for non-treatment if statin daily dose does not meet guidelines. HIGH DOSE STATIN THERAPY DAILY Atorvastatin > than or = to 40 mg Rosuvastatin > than or = to 20 mg Amlodipine + Atorvastatin > than or = to 2.5/40 mg Ezetimibe + Simvastatin 10/80 mg Simvastatin 80mg Discharge Plan Admission Admit Date/Time: 09/13/24 14:28 Primary Reason for Your Visit: Left total knee arthroplasty Attending Provider: Mike Moore Primary Care Provider: Josefa Gagnon Consulting Providers: Corey Levin Discharge Orders/Prescriptions Prescriptions: New acetaminophen 500 mg tablet 1,000 mg PO Q6H Qty: 100 2RF Eliquis 2.5 mg tablet 2.5 mg PO BID Qty: 30 0RF oxycodone 5 mg tablet 5 - 10 mg PO Q4H PRN (Reason: pain) 7 Days Qty: 60 0RF docusate sodium [Colace] 100 mg capsule 100 mg PO BID PRN (Reason: constipation) Qty: 60 2RF Rx Instructions: Use while taking narcotic to prevent constipation if needed. Held ibuprofen [IBU] 600 mg tablet 600 mg PO Q8H PRN (Reason: pain) Hold Instructions: May resume after completion of blood thinner if needed No Action BOWEL TONER 2 cap PO BID FULFURFLUME 2 cap PO BID MOBILITY JOINT SUPPORT 2 cap PO BID MEXI VISION 2 cap PO BID [place] 3-6-9 1,200 mg capsule 2 cap PO BID Other Ambulatory Orders: Partial Thromboplast Time (Routine) Timeframe: [id number] Facility: [facility] - Location: Laboratory Ordered By: Dr. Mike Moore Fructosamine (Routine) Timeframe: [id number] Facility: [facility] - Location: Laboratory Ordered By: Dr. Mike Moore Magnesium (Routine) Timeframe: [id number] Facility: [facility] - Location: Laboratory Ordered By: Dr. Corey Levin MRSA/SAID SCREEN (PRE SURG) (Routine) Timeframe: [id number] Facility: [facility] - Location: Laboratory Ordered By: Dr. Mike Moore Prothrombin Time w/INR (Routine) Timeframe: [id number] Facility: [facility] - Location: Laboratory Ordered By: Dr. Mike Moore
[2024-09-14 14:45] VITALS: BP 126/62; PULSE 62; RESP 17; TEMP 36.8; O2SAT 97
--- NOTE | 2024-09-14 15:45 | NURSING ---
At 1400 this RN took old Thigh high teds off and applied new Knee high genesis hose and sent an extra pair home with pt. Around the same time today, Dr. Moore called to inform that our Retail pharmacy is not open and per Julia Pharmacist, unable to get out of Retail Pharmacy. Dr. Moore sent her 4 new prescriptions to [facility] in [place] on [address]. Family is aware.
[2024-09-14 17:36] LABS: Bedside Glucose 177 mg/dL (74-106)
== END 2024-09-14 15:03 | disposition home or self-care (01) | DRG 470 ==
LOC: SDC 14:58 → MS3 14:58
PROVIDERS: Admitting Provider Orthopaedic Surgery; PCP Family Medicine; Referring Provider Orthopaedic Surgery; Visit Provider Orthopaedic Surgery
PROC: 0SRD0JZ Replacement of Left Knee Joint with Synthetic Substitute, Open Approach (ICD-10-PCS; CPT 27447; principal; 2024-09-13 10:15)
DX: M17.12 Unilateral primary osteoarthritis, left knee (principal); E11.9 Type 2 diabetes mellitus without complications; M25.562 Pain in left knee; G89.29 Other chronic pain; Z79.01 Long term (current) use of anticoagulants; Z86.718 Personal history of other venous thrombosis and embolism; Z90.49 Acquired absence of other specified parts of digestive tract
CPT/HCPCS: 73560; 80048; 82962; 83735; 85027; 86850; 86900; 86901; 88305; 88311; 93005; 94668; 97162; 97166; C1776; J2405; J3475

== ENCOUNTER → 2025-07-26 | Outpatient (CLI) | payer OTHER, SELFPAY ==
--- NOTE | 2025-07-26 12:15 | RAD_ITS ---
PROCEDURE: BONE LENGTH 07/26/2025 REASON FOR EXAM: UNEQUAL LIMB LENGTH F, age 70 y/o . Unequal limb length.. TECHNIQUE: Procedure Code: RADBL Modality: DX Procedure: BONE LENGTH COMPARISON: None FINDINGS: AP view of the lower extremities was performed. The right lower extremity measures 736.4 mm. The left lower extremity measures 740.4 mm. RAD/Bone Length IMPRESSION: Leg length discrepancy of 4 mm with the left lower extremity is longer than the right. Recommend follow-up as clinically warranted. Reading Location: [id number]
== END | disposition home or self-care (01) ==
LOC: RAD 12:03
PROVIDERS: PCP Family Medicine; Referring Provider Specialist; Visit Provider Specialist
DX: M24.851 Other specific joint derangements of right hip, not elsewhere classified (principal); M21.70 Unequal limb length (acquired), unspecified site
CPT/HCPCS: 77073